=== PATIENT | male | born 1960 | race African-American/Black ===

== ENCOUNTER 2017-07-27 16:49 | Emergency (ER) | payer OTHER, MEDICAID ==
[2017-07-27] MEDS: FAMOTIDINE 20 MG TABLET. PO (17:13)
[2017-07-27] MEDS: diphenhydrAMINE HCL 25 MG CAPSULE PO (17:13)
[2017-07-27] MEDS: methylPREDNISolone SOD SUCC PF 125 MG/2 ML VIAL. IM (17:14)
[2017-07-27] MEDS: IBUPROFEN 800 MG TABLET. PO (17:52)
== END 2017-07-27 18:21 | disposition home or self-care (01) ==
LOC: ER 16:49
DX: T63.441A Toxic effect of venom of bees, accidental (unintentional), initial encounter (principal); T78.40XA Allergy, unspecified, initial encounter; I10 Essential (primary) hypertension; Y92.89 Other specified places as the place of occurrence of the external cause
CPT/HCPCS: 96372; 99284; J2930; Q0163

== ENCOUNTER 2018-02-02 10:47 | Emergency (ER) | payer OTHER ==
[~2018-02-02] VITALS: Ht 157.5 cm; Wt 63.5 kg
[~2018-02-02 10:47] MED LIST: PRED20TA PO
[2018-02-02 10:58] VITALS: BP 162/99
[2018-02-02] MEDS ORDERED: HYDROcodone/APAP 7.5/325MG 1 TAB TABLET PO ONE (11:30)
[2018-02-02] MEDS ORDERED: NEOMY/BACITR/POLYMYXIN OINT PACKET. TP ONE (11:30)
[2018-02-02] MEDS ORDERED: CEPH-264 PO (12:17)
[2018-02-02] MEDS ORDERED: HYDR-3164 PO (12:17)
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
== END 2018-02-02 12:41 | disposition home or self-care (01) ==
LOC: ER 10:47
DX: T21.05XA Burn of unspecified degree of buttock, initial encounter (principal); I10 Essential (primary) hypertension; J44.9 Chronic obstructive pulmonary disease, unspecified; F20.9 Schizophrenia, unspecified; F43.10 Post-traumatic stress disorder, unspecified; Y93.89 Activity, other specified; X15.8XXA Contact with other hot household appliances, initial encounter; Y92.89 Other specified places as the place of occurrence of the external cause; Y99.8 Other external cause status
CPT/HCPCS: 16020; 99284-25

== ENCOUNTER 2018-05-12 16:50 | Emergency (ER) | payer OTHER ==
[~2018-05-12] VITALS: Ht 165.1 cm; Wt 65.8 kg
[~2018-05-12 16:50] MED LIST changes: +CEPH-264 PO; +HYDR-3164 PO
[2018-05-12 17:46] VITALS: BP 181/89
[2018-05-12] MEDS ORDERED: BACI28.34 TP (17:54)
[2018-05-12] MEDS ORDERED: HYDR-3164 PO (17:54)
[2018-05-12] MEDS ORDERED: CEPH-264 PO (17:54)
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
[2018-05-12] MEDS ORDERED: DIPHTH,PERTUSS(ACELL),TET TOX 0.5 ML DISP.SYRIN. VAX IM ONE (18:30)
== END 2018-05-12 18:40 | disposition home or self-care (01) ==
LOC: ER 16:50
DX: T25.232A Burn of second degree of left toe(s) (nail), initial encounter (principal); L03.032 Cellulitis of left toe; J44.9 Chronic obstructive pulmonary disease, unspecified; I10 Essential (primary) hypertension; X08.8XXA Exposure to other specified smoke, fire and flames, initial encounter; Y93.01 Activity, walking, marching and hiking; Y92.89 Other specified places as the place of occurrence of the external cause; Y99.8 Other external cause status
CPT/HCPCS: 16000; 90471; 90715; 99283; 99284

== ENCOUNTER 2021-05-01 08:32 | Emergency (ER) | payer SELFPAY ==
[~2021-05-01] VITALS: Ht 162.6 cm; Wt 72.0 kg
[~2021-05-01 08:32] MED LIST changes: +BACI28.34 TP
--- NOTE | 2021-05-01 08:35 | PHYS DOC ---
Past Medical History Past Medical History: COPD, Hypertension, Schizophrenia Additional Past Medical Histor: PTSD, Past Surgical History: No Surgical History Smoking Status: Current Every Day Smoker Alcohol Use: Occasionally Drug Use: None General Adult EDM: Chief Complaint: HYPERTENSION HPI: HPI: Patient is a 61 year old male who is here with hypertension. He has known, chronic, previously diagnosed hypertension. He has been out of his amlodipine for over a month. He believes he took 5 mg daily previously. He admits to noncompliance with his medication previously as well. He denies any chest pain, dyspnea, dizziness, headache, numbness, tingling, weakness. He denies abdominal pain or nausea or vomiting. He denies syncope or near syncope. He is currently at [facility] for cocaine rehabilitation. The physician there would not prescribe his antihypertensives. He has not contacted his regular primary care physician for follow-up of his hypertension. He also requests a refill of his high cholesterol medication, though he does not know specifically which medication he was taking, nor does he know the dose. He does not routinely check his blood pressure, though he believes that every time it has been checked previously has been high. Review of Systems: Review of Systems: Constitutional: Denies fever or chills. [] Eyes: Denies change in visual acuity. [] HENT: Denies nasal congestion or sore throat. [] Respiratory: Denies cough or shortness of breath. [] Cardiovascular: Denies chest pain or edema. [] GI: Denies abdominal pain, nausea, vomiting : Denies changes in urine output Musculoskeletal: Denies back pain or joint pain. [] Integument: Denies rash. [] Neurologic: Denies headache, focal weakness or sensory changes. Denies dizziness, vertigo, syncope. Psychiatric: Denies depression or anxiety. History of cocaine abuse. Heart Score: C/O Chest Pain: No Risk Factors: Risk Factors: DM, Current or recent (<one month) smoker, HTN, HLP, family history of CAD, obesity. Risk Scores: Score 0 - 3: 2.5% MACE over next 6 weeks - Discharge Home Score 4 - 6: 20.3% MACE over next 6 weeks - Admit for Clinical Observation Score 7 - 10: 72.7% MACE over next 6 weeks - Early Invasive Strategies Allergies: Allergies: Allergies Coded Allergies Type Severity Reaction Last Updated Verified No Known Drug Allergies 07/27/17 No Physical Exam: PE: Constitutional: Well developed, well nourished, no acute distress, non-toxic appearance. [] HENT: Normocephalic, atraumatic Neck: Normal range of motion, no tenderness, supple, no stridor. Trachea midline, no JVD Cardiovascular:Heart rate regular rhythm, 2 radial pulses bilaterally Lungs & Thorax: Bilateral breath sounds clear to auscultation, no rales, rhonchi or wheezes Skin: Warm, dry, no erythema, no rash. [] Back: No tenderness, no CVA tenderness. [] Extremities: No tenderness, no cyanosis, no clubbing, ROM intact, no edema. [] Neurologic: Alert and oriented X 3, normal motor function, normal sensory function, no focal deficits noted. No facial asymmetry, speech is clear and fluent, gait is steady, no ataxia Psychologic: Affect normal, judgement normal, mood normal. He is pleasant cooperative EKG: EKG: [] Radiology/Procedures: Radiology/Procedures: [] Course & Med Decision Making: Course & Med Decision Making The patient is given 5 mg amlodipine here. I prescribed 30-day supply with 1 refill on it. I told him to contact his PCP this week to arrange for close follow-up. I will not be able to prescribe his cholesterol medication because he does not know the name with the dosing of this medication, I told him he is to follow-up with his PCP for fasting lipids and for further prescription, if warranted. There is no current indication for further invasive exams, imaging, labs or admission at this time. He is asymptomatic and chronic hypertension. I explained the dangerousness of acutely lowering blood pressure in the setting of asymptomatic hypertension. He should have his blood pressure checked by his PCP to assure that he does not need any dosing adjustment or change in medications. Return precautions are given. Dragon Disclaimer: Rochelle Disclaimer: This electronic medical record was generated, in whole or in part, using a voice recognition dictation system. Departure Departure Impression: Primary Impression: Chronic hypertension Disposition: HOME / SELF CARE / HOMELESS Condition: STABLE Referrals: UNKNOWN PCP NAME (PCP) Patient Instructions: Hypertension Additional Instructions: Take the prescription medication as directed. Please contact your primary care doctor this week and arrange for follow-up. You will need to have fasting cholesterol levels checked at your doctor's office. This is not an emergency test, so you need to see a primary care doctor for this, if you need cholesterol medication your doctor will have to prescribe it to you. You are also being given information for outpatient cardiology services. Please return to the ER for severe chest pain, shortness of breath, vomiting, severe dizziness, severe headache, passing out, weakness or other concerns. I recommend stopping smoking as well. You should take an 81 mg baby aspirin every day to reduce your chance of heart attack or stroke. Scripts Amlodipine Besylate (AMLODIPINE BESYLATE) 5 Mg Tablet 5 MG PO DAILY for hypertension, #30 TAB 1 Refill Prov: ANN CHICAS DO 05/01/21 ANN CHICAS DO May 01, 2021 08:35
[2021-05-01] MEDS ORDERED: AMLO-186 PO (08:52)
[2021-05-01 09:10] VITALS: BP 189/83
== END 2021-05-01 09:11 | disposition home or self-care (01) ==
LOC: ER 08:32
DX: I10 Essential (primary) hypertension (principal); J44.9 Chronic obstructive pulmonary disease, unspecified; F20.9 Schizophrenia, unspecified; F43.10 Post-traumatic stress disorder, unspecified; F17.200 Nicotine dependence, unspecified, uncomplicated
CPT/HCPCS: 99283